=== PATIENT | male | born 1960 | race African-American/Black ===

== ENCOUNTER 2019-01-24 14:13 | Emergency (ER) | payer MEDICARE ==
[~2019-01-24] VITALS: Ht 185.4 cm; Wt 89.0 kg
[2019-01-24 15:17] VITALS: BP 160/106
[2019-01-24] MEDS ORDERED: LIDOCAINE HCL 2% 5ML SYRINGE IV ONE (17:45)
== END 2019-01-24 18:07 | disposition left against medical advice (07) ==
LOC: ER 14:13
DX: S61.211A Laceration without foreign body of left index finger without damage to nail, initial encounter (principal); I10 Essential (primary) hypertension; F17.210 Nicotine dependence, cigarettes, uncomplicated; Z86.73 Personal history of transient ischemic attack (TIA), and cerebral infarction without residual deficits; Z88.0 Allergy status to penicillin; W45.8XXA Other foreign body or object entering through skin, initial encounter; Y93.89 Activity, other specified; Y92.018 Other place in single-family (private) house as the place of occurrence of the external cause
CPT/HCPCS: 99281; J3490

== ENCOUNTER 2023-10-28 08:19 | Emergency (ER) | payer OTHER, MEDICAID ==
[~2023-10-28] VITALS: Ht 177.8 cm; Wt 88.4 kg
[2023-10-28 08:20] VITALS: O2SAT 98
[2023-10-28 09:28] LABS: BASOPHILS % 0.8 % (0.0-2.0); HEMATOCRIT. 43.9 % (42.0-52.0); HEMOGLOBIN. 14.9 g/dL (14.0-18.0); LYMPHOCYTES % 30.4 % (20.0-50.0); MEAN CORPUSCULAR HEMOGLOBIN 29.3 pg (28.0-32.0); MEAN CORPUSCULAR HGB CONC 33.9 g/dL (31.0-37.0); MEAN CORPUSCULAR VOLUME 86.7 fL (80.0-94.0); MEAN PLATELET VOLUME 10.2 fl (7.4-10.4); MONOCYTES % 8.8 % (2.0-8.0); PLATELET 210 x1000/uL (130-400); RED BLOOD CELL COUNT 5.07 mill/uL (4.7-6.1); WHITE BLOOD COUNT 6.6 x1000/uL (4.5-11.0)
[2023-10-28 09:36] LABS: CHLORIDE 106 mEq/L (98-107); POTASSIUM 3.6 mEq/L (3.5-5.1); SODIUM 136 mEq/L (136-145)
[2023-10-28 09:37] LABS: CALCIUM 9.5 mg/dL (8.7-10.4); CARBON DIOXIDE 27 mEq/L (21-32)
[2023-10-28 09:42] LABS: CREATININE 1.1 mg/dL (0.6-1.3); GLUCOSE 91 mg/dL (70-105); TROPONIN I HIGH SENSITIVITY 11 ng/L (3.0-53); UREA NITROGEN BLOOD 20 mg/dL (9-23)
[2023-10-28 09:49] LABS: PROTHROMBIN TIME 11.2 sec (9.6-11.0)
[2023-10-28 10:15] LABS: CLARITY URINE CLEAR (CLEAR); COLOR URINE YELLOW (YELLOW); GLUCOSE URINE NEGATIVE (NEGATIVE); KETONES URINE NEGATIVE (NEGATIVE); LEUKOCYTE ESTERASE URINE NEGATIVE (NEGATIVE); NITRITE URINE NEGATIVE (NEGATIVE); OCCULT BLOOD URINE NEGATIVE (NEGATIVE); PH URINE 7.5 (4.5-8.0); PROTEIN URINE NEGATIVE (NEGATIVE); SPECIFIC GRAVITY URINE 1.021 (1.005-1.030); UROBILINOGEN URINE 0.2 E.U./dL (0.2-1.0)
[2023-10-28] MEDS: IOHEXOL-350 100 ML BOTTLE ONE (10:47)
[2023-10-28 11:05] LABS: ETHANOL BLOOD < 10 mg/dL (<10)
[2023-10-28 11:24] LABS: *AMPHETAMINES SCREEN URINE NEGATIVE (NEGATIVE); *BARBITURATES SCREEN URINE NEGATIVE (NEGATIVE); *BENZODIAZEPINES SCREEN URINE NEGATIVE (NEGATIVE); *COCAINE SCREEN URINE NEGATIVE (NEGATIVE); CANNABINOID URINE SCREEN NEGATIVE (NEGATIVE); ECSTASY MDMA SCREEN URINE NEGATIVE (NEGATIVE); METHADONE URINE SCREEN NEGATIVE (NEGATIVE); OPIATES URINE SCREEN NEGATIVE (NEGATIVE); PHENCYCLIDINE URINE SCREEN NEGATIVE (NEGATIVE)
[2023-10-28] MEDS: LABETALOL 5MG/ML 4ML INJ IV ONE (11:54)
[2023-10-28 12:04] VITALS: BP 206/125; PULSE 76; RESP 14; TEMP 98.4
== END 2023-10-28 13:00 | disposition hospice, inpatient (51) ==
LOC: ER 08:19 → CANBEDREQ 10-30 22:13
DX: I63.9 Cerebral infarction, unspecified (principal); I10 Essential (primary) hypertension; Z88.0 Allergy status to penicillin; Z86.73 Personal history of transient ischemic attack (TIA), and cerebral infarction without residual deficits
CPT/HCPCS: 80305; 80048; 81003; 80320; 85025; 85610; 84484; 36415; 71045; 70496; 70498; 70450; 93005; 96374; 99285; Q9967; J3490; G0480